=== PATIENT | female | born 1950 | race Caucasian/White ===

== ENCOUNTER 2017-07-31 07:24 | Emergency (ER) | payer MEDICARE ==
[~2017-07-31] VITALS: Ht 167.6 cm; Wt 90.7 kg
[2017-07-31] MEDS ORDERED: SYNTHROID100 MCG PO (07:37)
[2017-07-31] MEDS ORDERED: NORCO 5-325 TA1 EACH PO (08:10)
== END 2017-07-31 08:24 | disposition home or self-care (01) ==
LOC: ED 07:24
PROC: 2W3CX1Z Immobilization of Right Lower Arm using Splint (ICD-10-PCS; principal; 2017-07-31)
DX: S52.121A Displaced fracture of head of right radius, initial encounter for closed fracture (principal); E03.9 Hypothyroidism, unspecified; Z79.899 Other long term (current) drug therapy; W01.0XXA Fall on same level from slipping, tripping and stumbling without subsequent striking against object, initial encounter
CPT/HCPCS: 29105; 73080; 99283